=== PATIENT | female | born 1990 | race Caucasian/White ===

== ENCOUNTER 2016-11-13 08:42 | Emergency (ER) | payer BC, OTHER ==
[~2016-11-13 08:42] MED LIST: OXYC1TAB23 PO; PRENTAB9 PO
--- NOTE | 2016-11-13 09:53 | EDDOCDS ---
Physician Documentation [facility] Name: Leonie Fonseca Age: 26 yrs Sex: Female : 1990 Arrival Date: 11/13/2016 Time: 08:42 Bed Triage 1 Private MD: Lm Vergara Disposition: 11/13/16 09:26 Discharged to Home/Self Care. Impression: Acute pharyngitis. - Condition is Stable. - Discharge Instructions: Pharyngitis. - Medication Reconciliation form. - Follow up: Emergency Department; When: As needed. Follow up: Lm Vergara PA; When: Call to arrange an appointment; Reason: Wound/Symptom Recheck, Recheck today's complaints, Continuance of care. - Problem is new. - Symptoms are unchanged. Historical: - Allergies: Toradol; - Home Meds: 1. none - PMHx: Migraines; - PSHx: Brain Surgery; ; - Social history: Smoking status: Patient states was never smoker of tobacco. No barriers to communication noted, The patient speaks fluent Surinamese, Speaks appropriately for age. - Family history: Not pertinent. - : The pt / caregiver states he / she is not on anticoagulants. Home medication list is obtained from the patient. - Exposure Risk Screening:: None identified. 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 9 in. (175.26 cm) (R); Pain 3/10; 08:54 Body Mass Index 21.86 (67.13 kg, 175.26 cm) mlb1 MDM: 09:16 Strep Screen, Nursing ordered. cc10 09:34 [facility] [place] was [place] into [employer] and attached to record. jp5 09:34 Financial registration complete. jp5 09:35 GATS (NEGATIVE STREP SCREEN) Ordered. EDMS Signatures: Dispatcher [employer] EDMS Braulio Berg RN RN mlb1 Tuan Walton PA-C PA-C cc10 John Lopez jp5 The chart was reviewed and I authenticate all verbal orders and agree with the evaluation and treatment provided.Attachments: 09:34 [facility] Payment Agreement jp5 MTDD
--- NOTE | 2016-11-13 09:53 | EDDOCDS ---
Nurse's Notes [facility] Name: Leonie Fonseca Age: 26 yrs Sex: Female : 1990 Arrival Date: 11/13/2016 Time: 08:42 Bed Triage 1 Private MD: Lm Vergara Diagnosis: Acute pharyngitis Presentation: 11/13 08:52 Presenting complaint: Patient states: Sore throat for the past two days. Risk factors: mlb1 Stridor is not present. Drooling is not present. Shortness of breath is not present. Cellulitis is not present. Adult Sepsis Screening: The patient does not have new or worsening altered mentation. Patient's respiratory rate is less than 22. Systolic blood pressure is greater than 100. Patient has a qSOFA score of 0- Negative Sepsis Screen. Suicide/Homicide risk assessment- the patient denies having any suicidal and/or homicidal ideations and does not present with any other emotional, behavioral or mental health complaints. Status: Patient is not a technical service representative or dependent. Transition of care: patient was not received from another setting of care. 08:52 Acuity: KRUPA Level 4 mlb1 08:52 Method Of Arrival: Walkin/Carried/Asstd mlb1 Triage Assessment: 08:54 General: Appears in no apparent distress, comfortable, Behavior is appropriate for age, mlb1 cooperative. Pain: Location: left aspect of posterior pharynx and right aspect of posterior pharynx Pain currently is 3 out of 10 on a pain scale. Pt Declines HIV testing. 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 none - PMHx: Migraines; - PSHx: Brain Surgery; ; - Social history: Smoking status: Patient states was never smoker of tobacco. No barriers to communication noted, The patient speaks fluent Malay, Speaks appropriately for age. - Family history: Not pertinent. - : The pt / caregiver states he / she is not on anticoagulants. Home medication list is obtained from the patient. - Exposure Risk Screening:: None identified. Screenin:34 Screening information is obtained from the patient. Fall risk: No risks identified. mlb1 Assistance ADL's: requires no assistance with activities of daily living. Abuse/DV Screen: The patient / caregiver reports he/she is: not in a situation that causes fear, pain or injury. Nutritional screening: No deficits noted. Advance Directives: Currently, there is no health care proxy. home support is adequate. Assessment: 09:34 General: Appears in no apparent distress, Behavior is appropriate for age, cooperative. mlb1 Pain: Location: right aspect of posterior pharynx and left aspect of posterior pharynx Pain currently is 4 out of 10 on a pain scale. EENT: Throat is reddened. Respiratory: Airway. Respiratory: Airway is patent Respiratory effort is even, unlabored. Derm: No deficits noted. 09:51 General: Appears in no apparent distress, comfortable, Behavior is appropriate for age, mlb1 cooperative. Pain: Location: right aspect of posterior pharynx and left aspect of posterior pharynx Pain currently is 4 out of 10 on a pain scale. Vital Signs: 08:54 BP 122 / 77; Pulse 100; Resp 16; Temp 97.5(TE); Pulse Ox 98% on R/A; Weight 67.13 kg mlb1 (R); Height 5 ft. 9 in. (175.26 cm) (R); Pain 3/10; 08:54 Body Mass Index 21.86 (67.13 kg, 175.26 cm) mlb1 Vitals: 08:54 Log In Time: November 13, 2016 at 08:41. mlb1 09:34 Strep Screen is obtained and tested: Negative, [facility] ED Course: 08:43 Patient visited by Jose Hinds. mm15 08:43 Patient moved to Waiting mm15 08:44 Lm Vergara PA is Private Physician. mm15 08:52 Patient visited by Braulio Berg, SHARRON. mlb1 08:53 Triage Initiated mlb1 08:55 Patient visited by Braulio Berg, SHARRON. mlb1 08:55 Patient moved to Triage 1 mlb1 09:13 Tuan Walton PA-C [facility]. cc10 09:13 Jeni Raygoza MD is Attending Physician. cc10 09:13 Patient visited by Tuan Walton PA-C. cc10 09:13 Patient visited by Tuan Walton PA-C. cc10 09:26 Lm Vergara PA is Referral Physician. cc10 09:34 [facility] Payment Agreement was scanned into [employer] and attached to record. jp5 09:35 The patient / caregiver is instructed regarding the plan of care and ED course. mlb1 09:35 No IV's were initiated during this patient's visit. No procedures done that require mlb1 assistance. 09:51 GATS (NEGATIVE STREP SCREEN) Sent. mlb1 Order Results: There are currently no results for this order. Outcome: 09:26 Discharge ordered by Provider. cc10 09:51 Discharge Assessment: Patient awake, alert and oriented x 3. No cognitive and/or mlb1 functional deficits noted. Patient verbalized understanding of disposition instructions. patient administered narcotics - no. The following High Risk Discharge criteria are identified: None. Discharged to home ambulatory. Condition: good. Discharge instructions given to patient, Instructed on discharge instructions, follow up and referral plans. Demonstrated understanding of instructions, Pt was receptive of discharge instructions/ teaching. No special radiology studies were completed. Property sent home with patient. 09:52 Patient left the ED. mlb1 Signatures: Braulio Berg RN RN mlb1 Jose Hinds mm15 Tuan Walton PA-C PA-C cc10 John Lopez jp5 THOM
--- NOTE | 2016-11-15 10:53 | EDDOCDS ---
Physician Documentation [facility] Name: Leonie Fonseca Age: 26 yrs Sex: Female : 1990 Arrival Date: 11/13/2016 Time: 08:42 Bed Triage 1 Private MD: Lm Vergara Disposition: 11/13/16 09:26 Discharged to Home/Self Care. Impression: Acute pharyngitis. - Condition is Stable. - Discharge Instructions: Pharyngitis. - Medication Reconciliation form. - Follow up: Emergency Department; When: As needed. Follow up: Lm Vergara PA; When: Call to arrange an appointment; Reason: Wound/Symptom Recheck, Recheck today's complaints, Continuance of care. - Problem is new. - Symptoms are unchanged. Historical: - Allergies: Toradol; - Home Meds: 1. none - PMHx: Migraines; - PSHx: Brain Surgery; ; - Social history: Smoking status: Patient states was never smoker of tobacco. No barriers to communication noted, The patient speaks fluent South Korean, Speaks appropriately for age. - Family history: Not pertinent. - : The pt / caregiver states he / she is not on anticoagulants. Home medication list is obtained from the patient. - Exposure Risk Screening:: None identified. 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 9 in. (175.26 cm) (R); Pain 3/10; 08:54 Body Mass Index 21.86 (67.13 kg, 175.26 cm) mlb1 MDM: 09:16 Strep Screen, Nursing ordered. cc10 09:34 [facility] Payment Agreement was scanned into [employer] and attached to record. jp5 09:34 Financial registration complete. jp5 09:35 GATS (NEGATIVE STREP SCREEN) Ordered. EDMS 11:27 T-Sheet-- Draft Copy was scanned into [employer] and attached to record. [facility] Signatures: Dispatcher [employer] EDIA Braulio Berg RN RN mlb1 ConiskiTuan PA-C PA-C cc10 John Lopez jp5 Jeni High The chart was reviewed and I authenticate all verbal orders and agree with the evaluation and treatment provided.Attachments: 09:34 [facility] Payment Agreement jp5 11:27 T-Sheet-- Draft Copy [facility] Chart Complete MTDD
--- NOTE | 2016-11-15 10:53 | EDDOCDS ---
Physician Documentation [facility] Name: Leonie Fonseca Age: 26 yrs Sex: Female : 1990 Arrival Date: 11/13/2016 Time: 08:42 Bed Triage 1 Private MD: Lm Vergara Disposition: 11/13/16 09:26 Discharged to Home/Self Care. Impression: Acute pharyngitis. - Condition is Stable. - Discharge Instructions: Pharyngitis. - Medication Reconciliation form. - Follow up: Emergency Department; When: As needed. Follow up: Lm Vergara PA; When: Call to arrange an appointment; Reason: Wound/Symptom Recheck, Recheck today's complaints, Continuance of care. - Problem is new. - Symptoms are unchanged. Historical: - Allergies: Toradol; - Home Meds: 1. none - PMHx: Migraines; - PSHx: Brain Surgery; ; - Social history: Smoking status: Patient states was never smoker of tobacco. No barriers to communication noted, The patient speaks fluent Congolese, Speaks appropriately for age. - Family history: Not pertinent. - : The pt / caregiver states he / she is not on anticoagulants. Home medication list is obtained from the patient. - Exposure Risk Screening:: None identified. 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 9 in. (175.26 cm) (R); Pain 3/10; 08:54 Body Mass Index 21.86 (67.13 kg, 175.26 cm) mlb1 MDM: 09:16 Strep Screen, Nursing ordered. cc10 09:34 [facility] Payment Agreement was scanned into [employer] and attached to record. jp5 09:34 Financial registration complete. jp5 09:35 GATS (NEGATIVE STREP SCREEN) Ordered. EDMS 11:27 T-Sheet-- Draft Copy was scanned into [employer] and attached to record. [facility] Signatures: Dispatcher [employer] EDSC Braulio Berg RN RN mlb1 ConiskiTuan PA-C PA-C cc10 John Lopez jp5 Jeni High The chart was reviewed and I authenticate all verbal orders and agree with the evaluation and treatment provided.Attachments: 09:34 [facility] Payment Agreement jp5 11:27 T-Sheet-- Draft Copy [facility] Chart Complete MTDD
--- NOTE | 2016-11-15 10:53 | EDDOCDS ---
Nurse's Notes [facility] Name: Leonie Fonseca Age: 26 yrs Sex: Female : 1990 Arrival Date: 11/13/2016 Time: 08:42 Bed Triage 1 Private MD: Lm Vergara Diagnosis: Acute pharyngitis Presentation: 11/13 08:52 Presenting complaint: Patient states: Sore throat for the past two days. Risk factors: mlb1 Stridor is not present. Drooling is not present. Shortness of breath is not present. Cellulitis is not present. Adult Sepsis Screening: The patient does not have new or worsening altered mentation. Patient's respiratory rate is less than 22. Systolic blood pressure is greater than 100. Patient has a qSOFA score of 0- Negative Sepsis Screen. Suicide/Homicide risk assessment- the patient denies having any suicidal and/or homicidal ideations and does not present with any other emotional, behavioral or mental health complaints. 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 Transition of care: patient was not received from another setting of care. 08:52 Acuity: KRUPA Level 4 mlb1 08:52 Method Of Arrival: Walkin/Carried/Asstd mlb1 Triage Assessment: 08:54 General: Appears in no apparent distress, comfortable, Behavior is appropriate for age, mlb1 cooperative. Pain: Location: left aspect of posterior pharynx and right aspect of posterior pharynx Pain currently is 3 out of 10 on a pain scale. Pt Declines HIV testing. 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 none - PMHx: Migraines; - PSHx: Brain Surgery; ; - Social history: Smoking status: Patient states was never smoker of tobacco. No barriers to communication noted, The patient speaks fluent Maori, Speaks appropriately for age. - Family history: Not pertinent. - : The pt / caregiver states he / she is not on anticoagulants. Home medication list is obtained from the patient. - Exposure Risk Screening:: None identified. Screenin:34 Screening information is obtained from the patient. Fall risk: No risks identified. mlb1 Assistance ADL's: requires no assistance with activities of daily living. Abuse/DV Screen: The patient / caregiver reports he/she is: not in a situation that causes fear, pain or injury. Nutritional screening: No deficits noted. Advance Directives: Currently, there is no health care proxy. home support is adequate. Assessment: 09:34 General: Appears in no apparent distress, Behavior is appropriate for age, cooperative. mlb1 Pain: Location: right aspect of posterior pharynx and left aspect of posterior pharynx Pain currently is 4 out of 10 on a pain scale. EENT: Throat is reddened. Respiratory: Airway. Respiratory: Airway is patent Respiratory effort is even, unlabored. Derm: No deficits noted. 09:51 General: Appears in no apparent distress, comfortable, Behavior is appropriate for age, mlb1 cooperative. Pain: Location: right aspect of posterior pharynx and left aspect of posterior pharynx Pain currently is 4 out of 10 on a pain scale. Vital Signs: 08:54 BP 122 / 77; Pulse 100; Resp 16; Temp 97.5(TE); Pulse Ox 98% on R/A; Weight 67.13 kg mlb1 (R); Height 5 ft. 9 in. (175.26 cm) (R); Pain 3/10; 08:54 Body Mass Index 21.86 (67.13 kg, 175.26 cm) mlb1 Vitals: 08:54 Log In Time: November 13, 2016 at 08:41. mlb1 09:34 Strep Screen is obtained and tested: Negative, [facility]. ED Course: 08:43 Patient visited by Jose Hinds. mm15 08:43 Patient moved to Waiting mm15 08:44 Lm Vergara PA is Private Physician. mm15 08:52 Patient visited by Braulio Berg, SHARRON. mlb1 08:53 Triage Initiated mlb1 08:55 Patient visited by Braulio Berg, SHARRON. mlb1 08:55 Patient moved to Triage 1 mlb1 09:13 Tuan Walton PA-C [facility]. cc10 09:13 Jeni Raygoza MD is Attending Physician. cc10 09:13 Patient visited by Tuan Walton PA-C. cc10 09:13 Patient visited by Tuan Walton PA-C. cc10 09:26 Lm Vergara PA is Referral Physician. cc10 09:34 [facility] Payment Agreement was scanned into [employer] and attached to record. jp5 09:35 The patient / caregiver is instructed regarding the plan of care and ED course. mlb1 09:35 No IV's were initiated during this patient's visit. No procedures done that require mlb1 assistance. 09:51 GATS (NEGATIVE STREP SCREEN) Sent. mlb1 11:27 T-Sheet-- Draft Copy was scanned into [employer] and attached to record. [facility] Order Results: Lab Order: GATS (NEGATIVE STREP SCREEN); SPEC'M 11/13/16 09:48 Test: GATS CULTURE (NEG STREP SCR); Value: GATS RESULT NEGATIVE FOR STREP PYOGENES (GROUP A); Status: F Outcome: 09:26 Discharge ordered by Provider. cc10 09:51 Discharge Assessment: Patient awake, alert and oriented x 3. No cognitive and/or mlb1 functional deficits noted. Patient verbalized understanding of disposition instructions. patient administered narcotics - no. The following High Risk Discharge criteria are identified: None. Discharged to home ambulatory. Condition: good. Discharge instructions given to patient, Instructed on discharge instructions, follow up and referral plans. Demonstrated understanding of instructions, Pt was receptive of discharge instructions/ teaching. No special radiology studies were completed. Property sent home with patient. 09:52 Patient left the ED. mlb1 Signatures: Braulio Berg RN RN mlb1 Jose Hinds mm15 Tuan Walton PA-C PA-C cc10 John Lopez jp5 Jeni High Chart Complete MTDD
== END 2016-11-13 09:51 | disposition home or self-care (01) ==
LOC: M ED 08:42
DX: J02.9 Acute pharyngitis, unspecified (principal); Z88.6 Allergy status to analgesic agent

== ENCOUNTER 2017-09-24 19:15 | Emergency (ER) | payer BC, OTHER ==
[~2017-09-24] VITALS: Ht 175.3 cm; Wt 63.6 kg
[2017-09-24] MEDS ORDERED: CETI10TA PO (19:21)
[2017-09-24] MEDS ORDERED: MORPHINE 4 MG/ML 1ML SYRINGE IV ONE (19:45)
[2017-09-24] MEDS ORDERED: ONDANSETRON 4MG/2ML VIAL (J2405) IV ONE (19:45)
[2017-09-24] MEDS ORDERED: NS 1,000 ML IV ONE (19:45)
[2017-09-24 20:19] LABS: BASO # 0.1 10^3/uL (0.0-0.2); BASO % 1.1 % (0.0-1.0); EOS # 0.4 10^3/uL (0.0-0.50); EOS % 3.8 % (0.0-3.0); IMMATURE GRANULOCYTE % 0.2 % (0-0); LYMPH # 3.8 10^3/uL (1.5-6.5); LYMPH % 38.2 % (24.0-44.0); MEAN CORPUSCULAR HEMOGLOBIN 27.1 pg (27.0-33.0); MEAN CORPUSCULAR HGB CONC 32.5 g/dl (32.0-36.5); MEAN CORPUSCULAR VOLUME 83.1 fl (80.0-96.0); MONO # 0.5 10^3/uL (0.0-0.8); MONO % 4.7 % (0.0-5.0); NEUTROPHILS # 5.2 10^3/uL (1.8-7.7); PLATELET COUNT, AUTOMATED 240 10^3/uL (150-450); RED CELL DISTRIBUTION WIDTH 14.1 % (11.5-14.5)
[2017-09-24 20:37] LABS: CONTROL LINE UCG INT CTR LINE PRESENT
[2017-09-24 20:42] LABS: ALBUMIN 3.9 GM/DL (3.2-5.2); ALBUMIN/GLOBULIN RATIO 1.39 (1.00-1.93); ALKALINE PHOSPHATASE 55 U/L (45-117); ALT/SGPT 22 U/L (12-78); ANION GAP 7 MEQ/L (8-16); AST/SGOT 15 U/L (7-37); BILIRUBIN,DIRECT 0.1 MG/DL (0.0-0.2); BILIRUBIN,TOTAL 0.4 MG/DL (0.2-1.0); BLOOD UREA NITROGEN 10 MG/DL (7-18); CARBON DIOXIDE LEVEL 27 MEQ/L (21-32); CHLORIDE LEVEL 108 MEQ/L (98-107); CREATININE FOR GFR 0.83 MG/DL (0.55-1.02); GLOMERULAR FILTRATION RATE > 60.0 (>60); GLUCOSE, FASTING 87 MG/DL (70-105); POTASSIUM SERUM 3.8 MEQ/L (3.5-5.1); SODIUM LEVEL 142 MEQ/L (136-145); TOTAL PROTEIN 6.7 GM/DL (6.4-8.2)
[2017-09-24] MEDS ORDERED: ISOVUE-370 76% 100ML VIAL (Q9967) As Ordered ONE (20:51)
[2017-09-24 22:03] VITALS: BP 140/82
--- NOTE | 2017-09-24 22:40 | REPUSA ---
Clinical history: Pain. Findings: Real-time transabdominal ultrasound images of the pelvis were obtained. An anteverted uteru s is noted, measuring 8.4 x 2.7 x 5.2 cm. The uterus demonstrates normal echotexture and echogenicity . The endometrial stripe measures 4 mm and is within normal limits. The right ovary measures 5.1 x 3. 2 x 2.3 cm. The left ovary measures 2.3 x 1.5 x 2.8 cm. No adnexal masses are seen. Color Doppler mikaela w is seen within both ovaries. There is no evidence of free fluid. The urinary bladder measures 9.2 x 7.1 x 9.2 cm, and is unremarkable. Impression: Unremarkable ultrasound examination of the pelvis.
--- NOTE | 2017-09-25 11:53 | REPUSA ---
CT of the abdomen and pelvis with contrast Clinical statement: Pain. Technique: Multiple axial CT images were obtained from the base of the lungs through the floor of the pelvis utilizing 5 mm axial slices after administration of nonionic intravenous contrast. Coronal an d sagittal reconstructions were also obtained. Comparison: 07/01/2008. Findings: Chest: The visualized lung bases are clear. Abdomen: The liver, spleen, pancreas, kidneys, gallbladder, and adrenal glands are unremarkable. The aorta is within normal limits. There is no evidence of abdominal lymphadenopathy or ascites. Pelvis: The bowel is unremarkable, with no obstructive or inflammatory changes. The urinary bladder i s within normal limits. The other pelvic structures appear grossly intact. There is no evidence of pe lvic lymphadenopathy or ascites. Bones: There are no suspicious osseous abnormalities seen. Impression: Unremarkable CT examination of the abdomen and pelvis.
== END 2017-09-24 22:40 | disposition home or self-care (01) ==
LOC: M ED 19:15
DX: R10.32 Left lower quadrant pain (principal); R11.0 Nausea; Z79.899 Other long term (current) drug therapy; Z88.8 Allergy status to other drugs, medicaments and biological substances
CPT/HCPCS: 74177; 76856; 80048; 80076; 81001; 81025; 83690; 84703; 85025; 87086; 93976; 96361; 96374; 96375; 99284; J2405; Q9967

== ENCOUNTER → 2017-09-28 | Outpatient (CLI) | payer OTHER, BC ==
[~2017-09-28] MED LIST changes: +CETI10TA PO
== END ==
LOC: M WUC 14:36
PROVIDERS: ATTEND Nurse Practitioner Family
DX: R10.2 Pelvic and perineal pain (principal)

== ENCOUNTER → 2017-10-23 | Outpatient (REF) | payer OTHER | LOC: M LAB REF 12:26 | PROVIDERS: ATTEND Physician Assistant | DX: J02.9 Acute pharyngitis, unspecified (principal) ==

== ENCOUNTER → 2018-02-02 | Outpatient (REF) | payer OTHER | LOC: M LAB REF 11:54 | DX: R30.0 Dysuria (principal) ==

== ENCOUNTER → 2018-05-03 | Outpatient (CLI) | payer OTHER ==
[2018-05-03 16:56] LABS: ALBUMIN 3.5 GM/DL (3.2-5.2); ALBUMIN/GLOBULIN RATIO 1.17 (1.00-1.93); ALKALINE PHOSPHATASE 60 U/L (45-117); ALT/SGPT 19 U/L (12-78); AMYLASE 75 U/L (25-115); AST/SGOT 15 U/L (7-37); BILIRUBIN,DIRECT < 0.1 MG/DL (0.0-0.2); BILIRUBIN,TOTAL 0.3 MG/DL (0.2-1.0); LIPASE 163 U/L (73-393); TOTAL PROTEIN 6.5 GM/DL (6.4-8.2)
== END ==
LOC: M WUC 14:02
DX: Z34.81 Encounter for supervision of other normal pregnancy, first trimester (principal)
CPT/HCPCS: 82150

== ENCOUNTER → 2018-06-15 | Outpatient (CLI) | payer BC, OTHER | LOC: M RAD 13:40 | DX: Z34.82 Encounter for supervision of other normal pregnancy, second trimester (principal); Z36.89 Encounter for other specified antenatal screening; Z3A.18 18 weeks gestation of pregnancy | CPT/HCPCS: 76811 ==

== ENCOUNTER → 2018-07-28 | Outpatient (REF) | payer OTHER | LOC: M LAB REF 10:45 | DX: J06.9 Acute upper respiratory infection, unspecified (principal) ==

== ENCOUNTER → 2018-07-31 | Outpatient (CLI) | payer BC, OTHER | LOC: M RAD 13:59 | DX: O32.1XX0 Maternal care for breech presentation, not applicable or unspecified (principal); Z3A.24 24 weeks gestation of pregnancy | CPT/HCPCS: 76816 ==

== ENCOUNTER → 2018-08-14 | Outpatient (CLI) | payer OTHER, BC ==
[2018-08-14 17:33] LABS: HEMATOCRIT 37.9 % (36.0-47.0); MEAN CORPUSCULAR HEMOGLOBIN 27.8 pg (27.0-33.0); MEAN CORPUSCULAR HGB CONC 31.7 g/dl (32.0-36.5); MEAN CORPUSCULAR VOLUME 87.9 fl (80.0-96.0); PLATELET COUNT, AUTOMATED 201 10^3/uL (150-450); RED BLOOD COUNT 4.31 10^6/uL (4.00-5.40); RED CELL DISTRIBUTION WIDTH 13.1 % (11.5-14.5); WHITE BLOOD COUNT 12.7 10^3/uL (4.0-10.0)
[2018-08-14 18:24] LABS: GLUCOSE CHALLENGE TEST 1 HOUR 157 MG/DL (LESS THAN 140)
== END ==
LOC: M WUC 14:34
DX: Z34.82 Encounter for supervision of other normal pregnancy, second trimester (principal)
CPT/HCPCS: 82950

== ENCOUNTER → 2018-08-21 | Outpatient (CLI) | payer BC, OTHER ==
[2018-08-21 09:35] LABS: GLUCOSE, FASTING 79 MG/DL (LESS THAN 95)
[2018-08-21 09:58] LABS: 1 HR GLUCOSE 94 MG/DL (LESS THAN 180)
[2018-08-21 10:58] LABS: 2 HR GLUCOSE 82 MG/DL (LESS THAN 155)
[2018-08-21 12:07] LABS: 3 HR GLUCOSE 52 MG/DL (LESS THAN 140)
== END ==
LOC: M LAB 08:07
DX: Z34.82 Encounter for supervision of other normal pregnancy, second trimester (principal); Z3A.00 Weeks of gestation of pregnancy not specified
CPT/HCPCS: 82951

== ENCOUNTER → 2018-10-18 | Outpatient (REF) | payer OTHER | LOC: M LAB REF 17:03 | DX: Z34.82 Encounter for supervision of other normal pregnancy, second trimester (principal); Z36.85 Encounter for antenatal screening for Streptococcus B | CPT/HCPCS: 87081 ==

== ENCOUNTER 2018-10-25 19:21 | Inpatient (IN) | payer BC, OTHER ==
[2018-10-25] MEDS: LACTATED RINGER'S 1000 ML IV (20:12)
[2018-10-25] MEDS ORDERED: ONDANSETRON 4MG/2ML VIAL (J2405) IV ×3 (20:30→23:00)
[2018-10-25] MEDS ORDERED: NALBUPHINE HCL 10 MG/ML AMP (J2300) IV (20:30)
[2018-10-25] MEDS ORDERED: NALOXONE INJ 0.4 MG/1 ML VIAL (J2310) IV ×2 (20:30)
[2018-10-25] MEDS ORDERED: ONDANSETRON 4MG/2ML VIAL (J2405) As Ordered ×2 (20:42→22:44)
[2018-10-25] MEDS ORDERED: dexameTHASONE 4 MG/ML 1ML VIAL (J1100) As Ordered (20:42)
[2018-10-25] MEDS ORDERED: OXYTOCIN INJ 10 UNITS/ML VIAL (J2590) As Ordered (20:42)
[2018-10-25] MEDS ORDERED: MORPHINE PRES-FREE INJ 10 MG/10 ML VIAL (J2274) As Ordered (20:43)
[2018-10-25] MEDS ORDERED: fentaNYL 100 MCG/2 ML INJECTION (J3010) As Ordered (20:43)
[2018-10-25 20:45] LABS: HEMATOCRIT 37.6 % (36.0-47.0); HEMOGLOBIN 11.6 g/dl (12.0-15.5); MEAN CORPUSCULAR HEMOGLOBIN 24.8 pg (27.0-33.0); MEAN CORPUSCULAR HGB CONC 30.9 g/dl (32.0-36.5); MEAN CORPUSCULAR VOLUME 80.3 fl (80.0-96.0); PLATELET COUNT, AUTOMATED 194 10^3/uL (150-450); RED BLOOD COUNT 4.68 10^6/uL (4.00-5.40); RED CELL DISTRIBUTION WIDTH 14.8 % (11.5-14.5); WHITE BLOOD COUNT 11.8 10^3/uL (4.0-10.0)
[2018-10-25] MEDS: BICITRA 30ML SOLN UDC PO (21:01)
[2018-10-25] MEDS: AZITHROMYCIN INJ 500 MG, VIAL MATE ADAPTER 1 EACH in D5W 250 ML IV (21:04)
[2018-10-25] MEDS ORDERED: ePHEDrine SULFATE 25 MG/5 ML(5MG/ML) SYRINGE As Ordered (22:03)
[2018-10-25] MEDS ORDERED: PHENYLephrine HCL 500 MCG/5 ML (100MCG/ML) SYRINGE (J2370) As Ordered (22:03)
[2018-10-25] MEDS: OXYTOCIN DRIP 30 UNITS in APPROPRIATE DILUENT 1 EA IV (22:34)
[2018-10-25] MEDS ORDERED: PERCOCET 5MG/325MG TAB PO ×2 (22:45)
[2018-10-25] MEDS ORDERED: PROMETHAZINE 25 MG TAB PO (22:45)
[2018-10-25] MEDS ORDERED: OXYTOCIN 30 UNITS IN 0.9% NaCl 500ML IV BAG (J2590) As Ordered (22:49)
[2018-10-25] MEDS ORDERED: fentaNYL 100 MCG/2 ML INJECTION (J3010) IV (23:00)
[2018-10-26] MEDS: LR 1,000 ML IV ×2 (03:23→06:34)
[2018-10-26] MEDS: METOCLOPRAMIDE INJ 10MG/2ML VIAL (J2765) IV (06:31)
[2018-10-26 06:55] LABS: HEMATOCRIT 37.2 % (36.0-47.0); HEMOGLOBIN 11.8 g/dl (12.0-15.5); MEAN CORPUSCULAR HEMOGLOBIN 25.1 pg (27.0-33.0); MEAN CORPUSCULAR HGB CONC 31.7 g/dl (32.0-36.5); PLATELET COUNT, AUTOMATED 186 10^3/uL (150-450); RED BLOOD COUNT 4.71 10^6/uL (4.00-5.40); RED CELL DISTRIBUTION WIDTH 14.7 % (11.5-14.5); WHITE BLOOD COUNT 20.5 10^3/uL (4.0-10.0)
[2018-10-26] MEDS: IBUPROFEN 800 MG TAB PO ×4 (07:13→23:17)
[2018-10-26] MEDS: RHOGAM 300 MCG (1500 IU) INJ (J2790) IM (07:15)
[2018-10-26] MEDS: MEASLES,MUMPS,RUBELLA VACCINE INJ (MMR-II) (90707) SC (07:15)
[2018-10-26] MEDS: DOCUSATE SODIUM 100 MG CAP PO ×2 (08:07→19:59)
[2018-10-26] MEDS: PRENATAL VITAMINS CHEWABLE TABLET PO (08:07)
[2018-10-26] MEDS ORDERED: guaiFENesin ER 600 MG TAB PO (09:00)
[2018-10-27] MEDS: IBUPROFEN 800 MG TAB PO (08:16)
[2018-10-27] MEDS: DOCUSATE SODIUM 100 MG CAP PO (08:16)
[2018-10-27] MEDS: PRENATAL VITAMINS CHEWABLE TABLET PO (08:16)
== END 2018-10-27 14:26 | disposition home or self-care (01) | DRG 540 ==
LOC: M LDO 19:21 → M OBS 10-26 00:20 → M LDI 19:55
PROVIDERS: Obstetrics & Gynecology
PROC: 10D00Z1 Extraction of Products of Conception, Low, Open Approach (ICD-10-PCS; principal; 2018-10-25 21:04)
DX: O34.211 Maternal care for low transverse scar from previous cesarean delivery (principal); Z3A.37 37 weeks gestation of pregnancy; O75.82 Onset (spontaneous) of labor after 37 completed weeks of gestation but before 39 completed weeks gestation, with delivery by (planned) cesarean section; Z37.0 Single live birth

== ENCOUNTER → 2019-09-12 | Outpatient (REF) | payer BC ==
[~2019-09-12] MED LIST changes: +IBUP-1114 PO; +MAGN1TAB39 PO
== END ==
LOC: M LAB REF 16:06
PROVIDERS: ATTEND Physician Assistant
DX: R19.7 Diarrhea, unspecified (principal)

== ENCOUNTER 2019-09-13 22:59 | Emergency (ER) | payer BC, OTHER ==
[~2019-09-13] VITALS: Ht 175.3 cm; Wt 63.6 kg
[2019-09-13 23:00] VITALS: BP 123/74
[2019-09-13] MEDS ORDERED: NS 1,000 ML IV ONE (23:45)
[2019-09-14] MEDS ORDERED: MORPHINE 4 MG/ML 1ML VIAL/SYRINGE (J2270) IV ONE
[2019-09-14] MEDS ORDERED: NS 1,000 ML IV ONE
[2019-09-14 00:21] LABS: BASO # 0.1 10^3/uL (0.0-0.2); BASO % 1.3 % (0.0-1.0); EOS # 0.4 10^3/uL (0.0-0.5); EOS % 5.5 % (0.0-3.0); HEMATOCRIT 42.8 % (36.0-47.0); HEMOGLOBIN 14.5 g/dl (12.0-15.5); LYMPH # 3.1 10^3/uL (1.5-5.0); LYMPH % 45.7 % (24.0-44.0); MEAN CORPUSCULAR HEMOGLOBIN 30.1 pg (27.0-33.0); MEAN CORPUSCULAR HGB CONC 33.9 g/dl (32.0-36.5); MONO # 0.3 10^3/uL (0.0-0.8); MONO % 4.9 % (0.0-5.0); NEUTROPHILS # 2.8 10^3/uL (1.5-8.5); PLATELET COUNT, AUTOMATED 205 10^3/uL (150-450); RED BLOOD COUNT 4.81 10^6/uL (4.00-5.40); WHITE BLOOD COUNT 6.7 10^3/uL (4.0-10.0)
[2019-09-14 00:42] LABS: ALBUMIN 3.7 GM/DL (3.2-5.2); ALT/SGPT 23 U/L (12-78); BILIRUBIN,DIRECT 0.1 MG/DL (0.0-0.2); BILIRUBIN,TOTAL 0.3 MG/DL (0.2-1.0); BLOOD UREA NITROGEN 14 MG/DL (7-18); CALCIUM LEVEL 8.6 MG/DL (8.5-10.1); CARBON DIOXIDE LEVEL 29 MEQ/L (21-32); CHLORIDE LEVEL 106 MEQ/L (98-107); CREATININE FOR GFR 0.93 MG/DL (0.55-1.30); GLOMERULAR FILTRATION RATE > 60.0 (>60); GLUCOSE, FASTING 83 MG/DL (70-100); LIPASE 148 U/L (73-393); POTASSIUM SERUM 3.7 MEQ/L (3.5-5.1); SODIUM LEVEL 141 MEQ/L (136-145); TOTAL PROTEIN 6.6 GM/DL (6.4-8.2)
[2019-09-14] MEDS ORDERED: ISOVUE-370 76% 100ML VIAL (Q9967) As Ordered ONE (00:58)
--- NOTE | 2019-09-14 01:46 | REPVR ---
PROCEDURE INFORMATION: Exam: CT Abdomen And Pelvis With Contrast Exam date and time: 09/14/2019 1:14 AM Clinical history: 29 years old, female; Abdominal pain; Generalized; Additional info: R pain TECHNIQUE: Imaging protocol: Computed tomography of the abdomen and pelvis with intravenous contrast. Radiation optimization: All CT scans at this facility use at least one of these dose optimization techniques: automated exposure control; mA and/or kV adjustment per patient size (includes targeted exams where dose is matched to clinical indication); or iterative reconstruction. Contrast material: ISOVUE 370; Contrast volume: 100 ml; Contrast route: IV; COMPARISON: CT ABD/PEL W/IV CONTRAST ONLY 09/24/2017 8:44 PM FINDINGS: Lungs: No suspicious mass or airspace process in the visualized lung bases. Liver: Liver appears normal with no focal abnormality. Gallbladder and bile ducts: Gallbladder is present and shows no evidence of gallstone. Pancreas: Pancreas appears normal. No focal mass or peripancreatic inflammation. Spleen: Spleen appears homogeneous without focal mass. Adrenals: Adrenal glands are normal in appearance. Kidneys and ureters: Kidneys appear normal, with no stone, solid mass or hydronephrosis. Stomach and bowel: No evidence of small bowel obstruction. Large volume of stool is seen throughout the colon. No evidence of acute diverticulitis. Appendix: Appendix is not seen. No RLQ inflammation to suggest appendicitis. Intraperitoneal space: No pneumoperitoneum. No abnormal pelvic mass. Vasculature: No aortic aneurysm. Main portal and splenic veins enhance normally. Lymph nodes: No enlarged lymph nodes. Bladder: Urinary bladder appears normal. Bones/joints: Bony structures show no acute fracture or destructive process. IMPRESSION: 1. No acute surgical or inflammatory intra-abdominal or pelvic process. 2. Large volume of diffuse colonic stool suggesting possible constipation Electronically signed by: Alfredo Laboy On 09/14/2019 01:45:58 AM
== END 2019-09-14 02:29 | disposition home or self-care (01) ==
LOC: M ED 22:59
DX: K59.00 Constipation, unspecified (principal)
CPT/HCPCS: 36415; 74177; 80048; 80076; 81001; 83690; 84702; 85025; 96360; 99284; Q9967

== ENCOUNTER → 2020-02-10 | Outpatient (CLI) | payer BC, OTHER ==
--- NOTE | 2020-02-10 12:45 | REP ---
DIGITAL DIAGNOSTIC BILATERAL MAMMOGRAPHY WITH CAD, 3-D TOMOGRAPHY, AND FOCUSED UPPER OUTER QUADRANT RIGHT BREAST SONOGRAPHY: HISTORY: Palpable abnormality in the upper outer quadrant of the right breast reported to the patient by the referring provider. The patient cannot feel a lump. No comparison imaging. MAMMOGRAPHIC FINDINGS: Breast parenchyma is heterogeneously dense in a pattern which may inhibit the sensitivity of mammography. Fibroglandular elements are symmetric. No dominant density, architectural distortion, mass, or microcalcification grouping is seen. No worrisome skin changes appreciated. The mammogram does not show any suspicious findings. SONOGRAPHIC FINDINGS: Focused right upper outer quadrant breast sonography is performed. Mildly heterogeneous fibroglandular background echotexture is seen. No sonographically suspicious finding. IMPRESSION: BIRADS 1: BI-RADS/ACR category 1 mammogram. Negative Mammogram. BIRADS category 1 negative findings. Clinical followup is advised. This mammogram was interpreted with the aid of an FDA-approved computer-aided detection system. The patient states she had a clinical breast exam in January 2020. The patient letter being requested is m2 dense. This patient's estimated Tyrer-Cuzick lifetime risk assessment for breast cancer is 12.7 %.
== END ==
LOC: M WHC 10:25
PROVIDERS: ATTEND Advanced Practice Midwife
DX: N64.4 Mastodynia (principal)
CPT/HCPCS: 76642; 77066; G0279

== ENCOUNTER → 2020-07-14 | Outpatient (REF) | payer BC | LOC: M WHC 14:00 | PROVIDERS: ATTEND Obstetrics & Gynecology | DX: Z12.4 Encounter for screening for malignant neoplasm of cervix (principal) | CPT/HCPCS: 87624; G0123 ==

== ENCOUNTER → 2021-02-05 | Outpatient (CLI) | payer BC ==
[2021-02-05 09:52] LABS: HEMATOCRIT 43.5 % (36.0-47.0); HEMOGLOBIN 14.4 g/dl (12.0-15.5); MEAN CORPUSCULAR HEMOGLOBIN 30.2 pg (27.0-33.0); MEAN CORPUSCULAR HGB CONC 33.1 g/dl (32.0-36.5); MEAN CORPUSCULAR VOLUME 91.2 fl (80.0-96.0); PLATELET COUNT, AUTOMATED 216 10^3/uL (150-450); RED BLOOD COUNT 4.77 10^6/uL (4.00-5.40); WHITE BLOOD COUNT 4.9 10^3/uL (4.0-10.0)
[2021-02-05 10:40] LABS: HCG, SERUM QUALITATIVE NEGATIVE (NEGATIVE)
[2021-02-05 10:46] LABS: ALT/SGPT 24 U/L (12-78); BILIRUBIN,TOTAL 0.5 MG/DL (0.2-1.0); BLOOD UREA NITROGEN 15 MG/DL (7-18); CALCIUM LEVEL 8.9 MG/DL (8.5-10.1); CARBON DIOXIDE LEVEL 31 MEQ/L (21-32); CHLORIDE LEVEL 107 MEQ/L (98-107); CREATININE FOR GFR 0.78 MG/DL (0.55-1.30); GLOMERULAR FILTRATION RATE > 60.0 (>60); GLUCOSE, FASTING 99 MG/DL (70-100); SODIUM LEVEL 142 MEQ/L (136-145); TOTAL PROTEIN 6.5 GM/DL (6.4-8.2)
== END ==
LOC: M WUC 08:36
PROVIDERS: ATTEND Family Medicine
DX: R53.83 Other fatigue (principal); N92.6 Irregular menstruation, unspecified

== ENCOUNTER → 2021-08-27 | Outpatient (REF) | payer OTHER ==
[2021-08-27 15:42] LABS: APPEARANCE, URINE HAZY (CLEAR); BACTERIA, URINE AUTO 1+ (NEGATIVE); BILIRUBIN, URINE AUTO NEGATIVE (NEGATIVE); BLOOD, URINE BLOOD 3+ (NEGATIVE); COLOR, URINE YELLOW (YELLOW); GLUCOSE, URINE (UA) AUTO NEGATIVE (NEGATIVE); KETONE, URINE AUTO NEGATIVE (NEGATIVE); LEUKOCYTE ESTERASE, URINE AUTO 3+ (NEGATIVE); NITRITE, URINE AUTO NEGATIVE (NEGATIVE); PROTEIN, URINE AUTO NEGATIVE (NEGATIVE); RBC, URINE AUTO 11 /HPF (0-3); SPECIFIC GRAVITY URINE AUTO 1.003 (1.002-1.035); SQUAMOUS EPITHELIAL CELL UR AU 0 /HPF (0-6); UROBILINOGEN, URINE AUTO 0.2 mg/dL (0.0-2.0); WBC, URINE AUTO 60 /HPF (0-3)
== END ==
LOC: M SFHCWAGY 12:47
PROVIDERS: ATTEND Advanced Practice Midwife
DX: R35.0 Frequency of micturition (principal)

== ENCOUNTER → 2021-09-01 | Outpatient (CLI) | payer OTHER ==
[2021-09-01 15:12] LABS: BASO # 0.1 10^3/uL (0.0-0.2); BASO % 0.9 % (0.0-1.0); EOS # 0.6 10^3/uL (0.0-0.5); HEMATOCRIT 46.4 % (36.0-47.0); HEMOGLOBIN 15.1 g/dl (12.0-15.5); LYMPH # 1.2 10^3/uL (1.5-5.0); LYMPH % 16.1 % (24.0-44.0); MEAN CORPUSCULAR HEMOGLOBIN 29.5 pg (27.0-33.0); MEAN CORPUSCULAR HGB CONC 32.5 g/dl (32.0-36.5); MEAN CORPUSCULAR VOLUME 90.6 fl (80.0-96.0); MONO # 0.6 10^3/uL (0.0-0.8); MONO % 7.2 % (2.0-8.0); NEUTROPHILS # 5.2 10^3/uL (1.5-8.5); NEUTROPHILS % 67.5 % (36.0-66.0); PLATELET COUNT, AUTOMATED 211 10^3/uL (150-450); RED BLOOD COUNT 5.12 10^6/uL (4.00-5.40); WHITE BLOOD COUNT 7.7 10^3/uL (4.0-10.0)
[2021-09-03 17:08] LABS: Lyme Disease IgG/IgM Antibodie <0.91 ISR (0.00-0.90); Lyme Disease IgM Ab Quantitati <0.80 index (0.00-0.79)
== END ==
LOC: M WUC 11:31
PROVIDERS: ATTEND Family Medicine
DX: M06.4 Inflammatory polyarthropathy (principal)

== ENCOUNTER → 2021-10-28 | Outpatient (CLI) | payer BC, OTHER ==
[2021-10-28 15:45] LABS: HCG, SERUM QUALITATIVE NEGATIVE (NEGATIVE)
[2021-10-28 15:48] LABS: FREE T4 0.99 NG/DL (0.76-1.46)
[2021-10-28 15:52] LABS: FOLLICLE STIMULATING HORMONE 5.6 mIU/mL; LUTEINIZING HORMONE 11.2 mIU/mL
== END ==
LOC: M PLALAB 12:27
PROVIDERS: ATTEND Advanced Practice Midwife
DX: N94.10 Unspecified dyspareunia (principal); N92.6 Irregular menstruation, unspecified; N93.0 Postcoital and contact bleeding; R10.2 Pelvic and perineal pain

== ENCOUNTER → 2021-10-28 | Outpatient (REF) | payer BC ==
[~2021-10-28] MED LIST changes: +CETI5CHW PO; +CLIN1GEL22 TOP; +MIRA3350 PO; +RA M1.74 PO; +SPIR100T3 PO
== END ==
LOC: M PLALAB 13:29
PROVIDERS: ATTEND Advanced Practice Midwife
DX: Z53.20 Procedure and treatment not carried out because of patient's decision for unspecified reasons (principal)

== ENCOUNTER → 2021-10-28 | Outpatient (REF) | payer BC ==
[2021-10-28 19:01] LABS: APPEARANCE, URINE CLEAR (CLEAR); BACTERIA, URINE AUTO NEGATIVE (NEGATIVE); BILIRUBIN, URINE AUTO NEGATIVE (NEGATIVE); BLOOD, URINE BLOOD NEGATIVE (NEGATIVE); COLOR, URINE STRAW (YELLOW); GLUCOSE, URINE (UA) AUTO NEGATIVE (NEGATIVE); KETONE, URINE AUTO NEGATIVE (NEGATIVE); LEUKOCYTE ESTERASE, URINE AUTO NEGATIVE (NEGATIVE); MUCUS, URINE SMALL (NEGATIVE); NITRITE, URINE AUTO NEGATIVE (NEGATIVE); PROTEIN, URINE AUTO NEGATIVE (NEGATIVE); RBC, URINE AUTO 0 /HPF (0-3); SPECIFIC GRAVITY URINE AUTO 1.001 (1.002-1.035); SQUAMOUS EPITHELIAL CELL UR AU 1 /HPF (0-6); UROBILINOGEN, URINE AUTO 0.2 mg/dL (0.0-2.0); WBC, URINE AUTO 0 /HPF (0-3)
== END ==
LOC: M SFHCWAGY 16:58
PROVIDERS: ATTEND Advanced Practice Midwife
DX: Z12.4 Encounter for screening for malignant neoplasm of cervix (principal); R10.2 Pelvic and perineal pain; N93.0 Postcoital and contact bleeding
CPT/HCPCS: 81001; 87086; 87624; G0123

== ENCOUNTER → 2021-11-01 | Outpatient (CLI) | payer BC, OTHER ==
--- NOTE | 2021-11-01 08:24 | REP ---
INDICATION: PELVIC PAIN/IRREGULAR BLEEDING COMPARISON: None. TECHNIQUE: Transabdominal pelvic ultrasound followed by transvaginal examination for better evaluation of the endometrium and adnexa with color Doppler evaluation of the ovaries. FINDINGS: Bladder is unremarkable and measures 7.1 x 3.2 x 4.7 cm. Normal anteverted uterus measures 9.1 x 5.1 x 4.6 cm. The endometrial complex measures 7 mm thickness. Ovaries are normal in vascularity without torsion. Right ovary measures 3.7 x 1.4 x 1.8 cm; R I = 0.44. Left ovary measures 2.2 x 2.4 x 3.5 cm and includes 1.8 cm physiologic hemorrhagic cyst; R I = 0.45. No pelvic fluid or adnexal mass lesion. IMPRESSION: Normal pelvic ultrasound. <Electronically signed by Jose Hoffman > 11/01/21 0844
== END ==
LOC: M WHC 07:04
PROVIDERS: ATTEND Advanced Practice Midwife
DX: N94.10 Unspecified dyspareunia (principal); N92.6 Irregular menstruation, unspecified; N93.0 Postcoital and contact bleeding

== ENCOUNTER 2021-11-02 13:49 | Emergency (ER) | payer BC, OTHER ==
[~2021-11-02] VITALS: Ht 175.3 cm; Wt 65.0 kg
[~2021-11-02 13:49] MED LIST changes: -CETI5CHW PO; -CLIN1GEL22 TOP; -MIRA3350 PO; -RA M1.74 PO; -SPIR100T3 PO
[2021-11-02] MEDS ORDERED: CETI5CHW PO (14:12)
[2021-11-02] MEDS ORDERED: SPIR100T3 PO (14:12)
[2021-11-02] MEDS ORDERED: CLIN1GEL22 TOP (14:12)
[2021-11-02] MEDS ORDERED: NS 1,000 ML IV ONE (16:55)
[2021-11-02] MEDS ORDERED: ONDANSETRON 4MG/2ML VIAL IV ONE (16:55)
[2021-11-02] MEDS ORDERED: KETOROLAC 30 MG/ML 1ML VIAL IV ONE (16:55)
[2021-11-02 18:02] LABS: BASO # 0.1 10^3/uL (0.0-0.2); BASO % 1.2 % (0.0-1.0); EOS # 0.1 10^3/uL (0.0-0.5); EOS % 1.2 % (0.0-3.0); HEMATOCRIT 43.8 % (36.0-47.0); LYMPH # 1.9 10^3/uL (1.5-5.0); LYMPH % 25.8 % (24.0-44.0); MEAN CORPUSCULAR HEMOGLOBIN 30.4 pg (27.0-33.0); MEAN CORPUSCULAR HGB CONC 34.2 g/dl (32.0-36.5); MEAN CORPUSCULAR VOLUME 88.7 fl (80.0-96.0); MONO # 0.3 10^3/uL (0.0-0.8); MONO % 3.5 % (2.0-8.0); NEUTROPHILS # 5.1 10^3/uL (1.5-8.5); PLATELET COUNT, AUTOMATED 221 10^3/uL (150-450); RED BLOOD COUNT 4.94 10^6/uL (4.00-5.40); WHITE BLOOD COUNT 7.5 10^3/uL (4.0-10.0)
[2021-11-02 18:31] LABS: ALBUMIN 4.5 GM/DL (3.2-5.2); ALT/SGPT 21 U/L (12-78); BILIRUBIN,DIRECT 0.2 MG/DL (0.0-0.2); BILIRUBIN,TOTAL 0.7 MG/DL (0.2-1.0); BLOOD UREA NITROGEN 10 MG/DL (7-18); CALCIUM LEVEL 9.8 MG/DL (8.5-10.1); CARBON DIOXIDE LEVEL 28 MEQ/L (21-32); CHLORIDE LEVEL 106 MEQ/L (98-107); CREATININE FOR GFR 0.82 MG/DL (0.55-1.30); GLOMERULAR FILTRATION RATE > 60.0 (>60); GLUCOSE, FASTING 93 MG/DL (70-100); LIPASE 102 U/L (73-393); POTASSIUM SERUM 3.9 MEQ/L (3.5-5.1); SODIUM LEVEL 140 MEQ/L (136-145); TOTAL PROTEIN 7.3 GM/DL (6.4-8.2)
[2021-11-02] MEDS ORDERED: ISOVUE-370 76% 100ML VIAL As Ordered ONE (18:41)
[2021-11-02 18:54] LABS: RSV AMPLIFICATION NEGATIVE (NEGATIVE)
[2021-11-02 19:32] VITALS: BP 145/67
--- NOTE | 2021-11-02 19:36 | REPVR ---
PROCEDURE INFORMATION: Exam: CT Abdomen And Pelvis With Contrast Exam date and time: 11/02/2021 6:48 PM Age: 31 years old Clinical indication: Abdominal pain; Additional info: Rlq pain TECHNIQUE: Imaging protocol: Computed tomography of the abdomen and pelvis with contrast. Radiation optimization: All CT scans at this facility use at least one of these dose optimization techniques: automated exposure control; mA and/or kV adjustment per patient size (includes targeted exams where dose is matched to clinical indication); or iterative reconstruction. Contrast material: ISOUVE 370; Contrast volume: 100 ml; Contrast route: INTRAVENOUS (IV); COMPARISON: CT ABD/PEL W/IV CONTRAST ONLY 09/14/2019 1:12 AM FINDINGS: Liver: Normal. No mass. Gallbladder and bile ducts: Normal. No calcified stones. No ductal dilation. Pancreas: Normal. No ductal dilation. Spleen: Normal. No splenomegaly. Adrenal glands: Normal. No mass. Kidneys and ureters: Normal. No hydronephrosis. Stomach and bowel: There is increased feces throughout the colon consistent with constipation. Appendix: No evidence of appendicitis. Intraperitoneal space: Unremarkable. No free air. No significant fluid collection. Vasculature: Unremarkable. No abdominal aortic aneurysm. Lymph nodes: Unremarkable. No enlarged lymph nodes. Urinary bladder: Unremarkable as visualized. Reproductive: Unremarkable as visualized. Bones/joints: Mild central spinal stenosis L3-L4 and L4-L5. Soft tissues: Small umbilical hernia. IMPRESSION: 1. There is increased feces throughout the colon consistent with constipation. 2. No acute changes. Electronically signed by: Lm Villatoro On 11/02/2021 19:35:48 PM
[2021-11-02] MEDS ORDERED: MIRA3350 PO (19:46)
[2021-11-02] MEDS ORDERED: RA M1.74 PO (19:46)
== END 2021-11-02 20:47 | disposition home or self-care (01) ==
LOC: M ED 13:49
DX: K59.00 Constipation, unspecified (principal)
CPT/HCPCS: 74177; 80048; 80076; 81001; 83605; 83690; 84702; 85025; 87631; 96361; 96374; 96375; 99284; J1885; J2405; Q9967

== ENCOUNTER 2021-11-20 17:48 | Emergency (ER) | payer BC, OTHER ==
[~2021-11-20 17:48] MED LIST changes: +CETI5CHW PO; +CLIN1GEL22 TOP; +MIRA3350 PO; +RA M1.74 PO; +SPIR100T3 PO
[2021-11-20 19:37] LABS: BASO # 0.1 10^3/uL (0.0-0.2); BASO % 0.5 % (0.0-1.0); EOS % 0.1 % (0.0-3.0); HEMATOCRIT 45.4 % (36.0-47.0); HEMOGLOBIN 15.6 g/dl (12.0-15.5); LYMPH # 0.9 10^3/uL (1.5-5.0); LYMPH % 9.7 % (24.0-44.0); MEAN CORPUSCULAR HEMOGLOBIN 29.8 pg (27.0-33.0); MEAN CORPUSCULAR HGB CONC 34.4 g/dl (32.0-36.5); MEAN CORPUSCULAR VOLUME 86.6 fl (80.0-96.0); MONO # 0.1 10^3/uL (0.0-0.8); MONO % 1.5 % (2.0-8.0); NEUTROPHILS # 8.5 10^3/uL (1.5-8.5); NEUTROPHILS % 87.9 % (36.0-66.0); PLATELET COUNT, AUTOMATED 212 10^3/uL (150-450); RED BLOOD COUNT 5.24 10^6/uL (4.00-5.40); WHITE BLOOD COUNT 9.6 10^3/uL (4.0-10.0)
[2021-11-20 20:47] LABS: BLOOD UREA NITROGEN 13 MG/DL (7-18); CALCIUM LEVEL 9.7 MG/DL (8.5-10.1); CARBON DIOXIDE LEVEL 27 MEQ/L (21-32); CHLORIDE LEVEL 108 MEQ/L (98-107); CREATININE FOR GFR 0.96 MG/DL (0.55-1.30); GLOMERULAR FILTRATION RATE > 60.0 (>60); GLUCOSE, FASTING 117 MG/DL (70-100); POTASSIUM SERUM 3.5 MEQ/L (3.5-5.1); SODIUM LEVEL 143 MEQ/L (136-145)
[2021-11-20 22:03] VITALS: BP 118/63
[2021-11-22 10:45] LABS: VITAMIN B12 LEVEL 488 PG/ML (247-911)
== END 2021-11-20 22:11 | disposition home or self-care (01) ==
LOC: M ED 17:48 → EDBD 17:48 → M ED 22:11
DX: R51.9 Headache, unspecified (principal); R11.2 Nausea with vomiting, unspecified; U07.1 COVID-19

== ENCOUNTER → 2021-12-09 | Outpatient (REF) | payer BC, OTHER | LOC: M LAB REF 18:16 | PROVIDERS: ATTEND Specialist | DX: N92.6 Irregular menstruation, unspecified (principal); N85.00 Endometrial hyperplasia, unspecified ==

== ENCOUNTER → 2022-03-03 | Outpatient (CLI) | payer BC, OTHER | LOC: M LABSMTC 09:46 | PROVIDERS: ATTEND Colon & Rectal Surgery | DX: Z11.52 Encounter for screening for COVID-19 (principal) ==

== ENCOUNTER → 2022-03-16 | Outpatient (CLI) | payer BC, OTHER ==
[~2022-03-16] MED LIST changes: +ALLE180T33 PO; +DEBL1TAB PO; +HYDR-643 PO; +MULT1TAB16 PO; +PROBCAP14 PO; +ZYRT10TA12 PO
== END ==
LOC: M LABSMTC 09:15
PROVIDERS: ATTEND Anesthesiology
DX: Z01.812 Encounter for preprocedural laboratory examination (principal); Z11.52 Encounter for screening for COVID-19

== ENCOUNTER 2022-03-21 13:45 | Day surgery (SDC) | payer BC, OTHER ==
[~2022-03-21] VITALS: Ht 175.3 cm; Wt 68.5 kg
[~2022-03-21 13:45] MED LIST changes: +LR 1,000 ML IV ONE
[2022-03-21 14:22] LABS: HEMATOCRIT 44.5 % (36.0-47.0); MEAN CORPUSCULAR HEMOGLOBIN 30.3 pg (27.0-33.0); MEAN CORPUSCULAR HGB CONC 33.7 g/dl (32.0-36.5); MEAN CORPUSCULAR VOLUME 89.9 fl (80.0-96.0); PLATELET COUNT, AUTOMATED 235 10^3/uL (150-450); RED BLOOD COUNT 4.95 10^6/uL (4.00-5.40); WHITE BLOOD COUNT 6.4 10^3/uL (4.0-10.0)
[2022-03-21] MEDS ORDERED: ACET-907 PO (14:31)
[2022-03-21] MEDS ORDERED: fentaNYL 100 MCG/2 ML INJECTION As Ordered ONE ×2 (15:09→16:56)
[2022-03-21] MEDS ORDERED: MIDAZOLAM INJ 2MG/2ML VIAL (J2250 PER 1MG) As Ordered ONE (15:09)
[2022-03-21] MEDS ORDERED: LIDOCAINE 2% 100MG/5ML SDV (FOR ANES.) As Ordered ONE (15:09)
[2022-03-21] MEDS ORDERED: propofoL 200 MG/20 ML VIAL As Ordered ONE (15:09)
[2022-03-21] MEDS ORDERED: diphenhydrAMINE 50MG/ML VIAL (J1200) IV ONE (15:10)
[2022-03-21] MEDS ORDERED: SCOPOLAMINE 1MG TRANSDERMAL PATCH TOP ONE (15:25)
[2022-03-21] MEDS ORDERED: LIDOCAINE 1% MDV 20ML VIAL As Ordered ONE (15:52)
[2022-03-21] MEDS ORDERED: SCOPOLAMINE 1MG TRANSDERMAL PATCH As Ordered ONE (16:04)
[2022-03-21] MEDS ORDERED: dexameTHASONE 4 MG/ML 1ML VIAL (J1100 PER 1MG) As Ordered ONE (16:11)
[2022-03-21] MEDS ORDERED: KETOROLAC 60MG 2ML VIAL As Ordered ONE (16:11)
[2022-03-21] MEDS ORDERED: METOCLOPRAMIDE INJ 10MG/2ML VIAL (J2765 PER 1) As Ordered ONE (16:11)
[2022-03-21] MEDS ORDERED: ONDANSETRON 4MG/2ML VIAL As Ordered ONE ×2 (16:11→16:56)
[2022-03-21] MEDS ORDERED: ACETAMINOPHEN 1000MG 100ML IV BTL (OFIRMEV) (J0131 PER 10MG) As Ordered ONE (16:15)
[2022-03-21] MEDS ORDERED: ePHEDrine SULFATE 25 MG/5 ML(5MG/ML) SYRINGE As Ordered ONE (16:21)
[2022-03-21] MEDS ORDERED: HYDROMORPHONE HCL 0.5 MG/ 0.5 ML SYRINGE (J1170 PER 1) IV PRN (16:55)
[2022-03-21] MEDS ORDERED: LR 1,000 ML IV SCH ×2 (16:55→17:05)
[2022-03-21] MEDS ORDERED: oxyCODONE 5MG TAB PO PRN (16:55)
[2022-03-21] MEDS ORDERED: fentaNYL 100 MCG/2 ML INJECTION IV PRN (16:55)
[2022-03-21] MEDS ORDERED: ONDANSETRON 4MG/2ML VIAL IV PRN (16:55)
[2022-03-21] MEDS ORDERED: oxyCODONE 5MG TAB As Ordered ONE (16:56)
[2022-03-21] MEDS ORDERED: PERCOCET 5MG/325MG TAB PO PRN (17:05)
[2022-03-21 17:40] VITALS: BP 127/69
== END 2022-03-21 18:00 | disposition home or self-care (01) ==
LOC: M SDC 13:45
PROVIDERS: ATTEND Specialist
DX: N92.1 Excessive and frequent menstruation with irregular cycle (principal); G50.0 Trigeminal neuralgia; K27.9 Peptic ulcer, site unspecified, unspecified as acute or chronic, without hemorrhage or perforation; G43.909 Migraine, unspecified, not intractable, without status migrainosus; K59.00 Constipation, unspecified; K64.8 Other hemorrhoids; Z86.16 Personal history of COVID-19; R35.0 Frequency of micturition; R06.83 Snoring; Z87.891 Personal history of nicotine dependence; Z79.899 Other long term (current) drug therapy
CPT/HCPCS: 36415; 58563; 81025; 85027; 88305; J0131; J1100; J1885; J2250; J2405; J2765; J3010

== ENCOUNTER → 2022-04-26 | Outpatient (REF) | payer BC ==
[~2022-04-26] MED LIST changes: +ACET-907 PO; -LR 1,000 ML IV ONE
== END ==
LOC: M WUC 12:22
PROVIDERS: ATTEND Student in an Organized Health Care Education/Training Program
DX: R30.0 Dysuria (principal)

== ENCOUNTER 2022-09-24 22:58 | Emergency (ER) | payer BC ==
[~2022-09-24] VITALS: Ht 175.3 cm; Wt 69.0 kg
[2022-09-25 04:14] LABS: BASO # 0.1 10^3/uL (0.0-0.2); BASO % 1.3 % (0.0-1.0); EOS # 0.2 10^3/uL (0.0-0.5); EOS % 2.5 % (0.0-3.0); HEMATOCRIT 45.2 % (36.0-47.0); HEMOGLOBIN 15.1 g/dl (12.0-15.5); LYMPH # 3.1 10^3/uL (1.5-5.0); MEAN CORPUSCULAR HEMOGLOBIN 29.4 pg (27.0-33.0); MEAN CORPUSCULAR HGB CONC 33.4 g/dl (32.0-36.5); MEAN CORPUSCULAR VOLUME 88.1 fl (80.0-96.0); MONO # 0.5 10^3/uL (0.0-0.8); MONO % 5.7 % (2.0-8.0); NEUTROPHILS # 4.7 10^3/uL (1.5-8.5); NEUTROPHILS % 54.3 % (36.0-66.0); PLATELET COUNT, AUTOMATED 206 10^3/uL (150-450); RED BLOOD COUNT 5.13 10^6/uL (4.00-5.40); WHITE BLOOD COUNT 8.7 10^3/uL (4.0-10.0)
[2022-09-25 04:41] LABS: ALBUMIN 4.6 GM/DL (3.2-5.2); ALT/SGPT 19 U/L (12-78); BILIRUBIN,TOTAL 0.9 MG/DL (0.2-1.0); BLOOD UREA NITROGEN 10 MG/DL (7-18); CALCIUM LEVEL 9.5 MG/DL (8.5-10.1); CARBON DIOXIDE LEVEL 26 MEQ/L (21-32); CHLORIDE LEVEL 107 MEQ/L (98-107); CREATININE FOR GFR 0.87 MG/DL (0.55-1.30); FREE T4 1.06 NG/DL (0.76-1.46); GLOMERULAR FILTRATION RATE > 60.0 (>60); GLUCOSE, FASTING 102 MG/DL (70-100); LIPASE 147 U/L (73-393); MAGNESIUM LEVEL 2.2 MG/DL (1.8-2.4); POTASSIUM SERUM 3.7 MEQ/L (3.5-5.1); SODIUM LEVEL 140 MEQ/L (136-145); TOTAL PROTEIN 7.5 GM/DL (6.4-8.2)
[2022-09-25] MEDS ORDERED: NS 1,000 ML IV ONE ×2 (05:35→06:40)
[2022-09-25] MEDS ORDERED: ISOVUE-370 76% 100ML VIAL As Ordered ONE (06:03)
[2022-09-25 06:10] LABS: HCG, SERUM QUALITATIVE NEGATIVE (NEGATIVE)
[2022-09-25 06:54] LABS: CK-MB VALUE MASS < 1.0 NG/ML (<3.6); CPK CREATINE PHOSPHOKINASE 86 U/L (26-192); MB/CK RELATIVE INDEX 1.16 (< OR =4)
[2022-09-25 08:40] VITALS: BP 114/67
== END 2022-09-25 08:42 | disposition home or self-care (01) ==
LOC: M ED 22:58
DX: B34.8 Other viral infections of unspecified site (principal); R00.2 Palpitations; R94.6 Abnormal results of thyroid function studies; R00.0 Tachycardia, unspecified; I45.10 Unspecified right bundle-branch block; Z87.891 Personal history of nicotine dependence; Z79.899 Other long term (current) drug therapy

== ENCOUNTER → 2022-09-28 | Outpatient (REF) | payer OTHER, BC | LOC: M LAB REF 15:47 | PROVIDERS: ATTEND Registered Nurse | DX: R35.0 Frequency of micturition (principal) ==

== ENCOUNTER → 2022-10-14 | Outpatient (REF) | payer BC, OTHER | LOC: M LABWUC 16:30 | PROVIDERS: ATTEND Internal Medicine Cardiovascular Disease | DX: R06.02 Shortness of breath (principal) ==

== ENCOUNTER → 2022-10-24 | Outpatient (CLI) | payer BC, OTHER | LOC: M CARPUL 12:40 | PROVIDERS: ATTEND Internal Medicine Cardiovascular Disease | DX: R06.02 Shortness of breath (principal) ==

== ENCOUNTER → 2022-11-03 | Outpatient (CLI) | payer BC, OTHER ==
[2022-11-03 17:15] LABS: BASO # 0.1 10^3/uL (0.0-0.2); BASO % 1.8 % (0.0-1.0); EOS # 0.3 10^3/uL (0.0-0.5); EOS % 5.1 % (0.0-3.0); HEMOGLOBIN 14.6 g/dl (12.0-15.5); LYMPH # 2.2 10^3/uL (1.5-5.0); LYMPH % 36.9 % (24.0-44.0); MEAN CORPUSCULAR HEMOGLOBIN 29.7 pg (27.0-33.0); MEAN CORPUSCULAR HGB CONC 32.4 g/dl (32.0-36.5); MEAN CORPUSCULAR VOLUME 91.6 fl (80.0-96.0); MONO # 0.3 10^3/uL (0.0-0.8); MONO % 5.3 % (2.0-8.0); NEUTROPHILS # 3.1 10^3/uL (1.5-8.5); NEUTROPHILS % 50.7 % (36.0-66.0); PLATELET COUNT, AUTOMATED 202 10^3/uL (150-450); RED BLOOD COUNT 4.91 10^6/uL (4.00-5.40); WHITE BLOOD COUNT 6.1 10^3/uL (4.0-10.0)
[2022-11-03 17:33] LABS: ALBUMIN 4.2 G/DL (3.2-5.2); ALKALINE PHOSPHATASE 55 U/L (46-116); ALT/SGPT 17 U/L (7.0-40); AST/SGOT 20 U/L (<34); BILIRUBIN,TOTAL 0.5 MG/DL (0.3-1.2); BLOOD UREA NITROGEN 11 MG/DL (9-23); CALCIUM LEVEL 9.5 MG/DL (8.5-10.1); CARBON DIOXIDE LEVEL 29 MMOL/L (20-31); CHLORIDE LEVEL 104 MMOL/L (98-107); CREATININE FOR GFR 0.78 MG/DL (0.55-1.30); GLOMERULAR FILTRATION RATE > 60.0 (>60); GLUCOSE, FASTING 78 MG/DL (60-100); POTASSIUM SERUM 4.3 MMOL/L (3.5-5.1); SODIUM LEVEL 140 MMOL/L (136-145); TOTAL PROTEIN 6.5 G/DL (5.7-8.2)
[2022-11-03 17:40] LABS: FREE T4 1.02 NG/DL (0.89-1.76)
[2022-11-03 17:41] LABS: THYROID STIMULATING HORMONE 1.036 uIU/ML (0.55-4.78)
== END ==
LOC: M WUC 14:41
PROVIDERS: ATTEND Registered Nurse
DX: R94.6 Abnormal results of thyroid function studies (principal); R00.2 Palpitations

== ENCOUNTER → 2022-11-24 | Outpatient (CLI) | payer BC, OTHER ==
[2022-11-24 17:06] LABS: PERCENT SATURATION 47.5 % (13.2-45.0)
[2022-11-24 17:08] LABS: FERRITIN 51.9 NG/ML (7.3-270.7); TOTAL 25(OH) VITAMIN D 23.9 NG/ML (20.0-100.0)
== END ==
LOC: M WUC 14:14
DX: R53.83 Other fatigue (principal)

== ENCOUNTER → 2022-11-28 | Outpatient (CLI) | payer BC, OTHER ==
[2022-11-28 16:50] LABS: BASO # 0.1 10^3/uL (0.0-0.2); BASO % 1.2 % (0.0-1.0); EOS # 0.4 10^3/uL (0.0-0.5); EOS % 5.4 % (0.0-3.0); HEMOGLOBIN 14.7 g/dl (12.0-15.5); LYMPH # 2.1 10^3/uL (1.5-5.0); LYMPH % 32.3 % (24.0-44.0); MEAN CORPUSCULAR HEMOGLOBIN 29.5 pg (27.0-33.0); MEAN CORPUSCULAR VOLUME 92.2 fl (80.0-96.0); MONO # 0.4 10^3/uL (0.0-0.8); MONO % 6.2 % (2.0-8.0); NEUTROPHILS # 3.6 10^3/uL (1.5-8.5); NEUTROPHILS % 54.7 % (36.0-66.0); PLATELET COUNT, AUTOMATED 235 10^3/uL (150-450); RED BLOOD COUNT 4.99 10^6/uL (4.00-5.40); WHITE BLOOD COUNT 6.5 10^3/uL (4.0-10.0)
[2022-11-28 17:27] LABS: FERRITIN 62.1 NG/ML (7.3-270.7)
[2022-11-28 17:28] LABS: TOTAL IRON BINDING CAPACITY 308 UG/DL (250-425)
[2022-11-28 17:29] LABS: ALBUMIN 4.1 G/DL (3.2-5.2); ALKALINE PHOSPHATASE 58 U/L (46-116); ALT/SGPT 21 U/L (7.0-40); AST/SGOT 19 U/L (<34); BILIRUBIN,TOTAL 0.7 MG/DL (0.3-1.2); BLOOD UREA NITROGEN 14 MG/DL (9-23); CALCIUM LEVEL 9.3 MG/DL (8.5-10.1); CARBON DIOXIDE LEVEL 30 MMOL/L (20-31); CHLORIDE LEVEL 107 MMOL/L (98-107); CREATININE FOR GFR 0.85 MG/DL (0.55-1.30); GLOMERULAR FILTRATION RATE > 60.0 (>60); GLUCOSE, FASTING 70 MG/DL (60-100); IRON (FE) 159 UG/DL (50-170); PERCENT SATURATION 51.6 % (13.2-45.0); SODIUM LEVEL 142 MMOL/L (136-145); TOTAL PROTEIN 6.5 G/DL (5.7-8.2)
== END ==
LOC: M WUC 13:11
PROVIDERS: ATTEND Registered Nurse
DX: R53.83 Other fatigue (principal)

== ENCOUNTER → 2022-12-19 | Outpatient (REF) | payer BC, OTHER | LOC: M WUC 19:54 | PROVIDERS: ATTEND Student in an Organized Health Care Education/Training Program | DX: R30.0 Dysuria (principal) ==

== ENCOUNTER → 2022-12-30 | Outpatient (REF) | payer OTHER, BC | LOC: M LAB REF 16:14 | PROVIDERS: ATTEND Physician Assistant | DX: R30.0 Dysuria (principal) ==

== ENCOUNTER → 2023-01-17 | Outpatient (CLI) | payer BC, OTHER ==
[~2023-01-17] MED LIST changes: +BIOT5TAB3 PO; +CEPHALEXIN; +tumeric PO
[2023-01-17 13:22] LABS: BASO # 0.1 10^3/uL (0.0-0.2); BASO % 1.6 % (0.0-1.0); EOS # 0.5 10^3/uL (0.0-0.5); HEMATOCRIT 42.8 % (36.0-47.0); HEMOGLOBIN 14.3 g/dl (12.0-15.5); LYMPH # 1.7 10^3/uL (1.5-5.0); MEAN CORPUSCULAR HEMOGLOBIN 30.2 pg (27.0-33.0); MEAN CORPUSCULAR HGB CONC 33.4 g/dl (32.0-36.5); MEAN CORPUSCULAR VOLUME 90.5 fl (80.0-96.0); MONO # 0.3 10^3/uL (0.0-0.8); MONO % 5.4 % (2.0-8.0); NEUTROPHILS # 3.2 10^3/uL (1.5-8.5); NEUTROPHILS % 54.7 % (36.0-66.0); PLATELET COUNT, AUTOMATED 200 10^3/uL (150-450); RED BLOOD COUNT 4.73 10^6/uL (4.00-5.40); WHITE BLOOD COUNT 5.8 10^3/uL (4.0-10.0)
[2023-01-17 13:36] LABS: ERYTHROCYTE SEDIMENTATION RATE 8 mm/hr (0-20)
[2023-01-17 13:56] LABS: FERRITIN 49.4 NG/ML (7.3-270.7)
[2023-01-17 13:58] LABS: C REACTIVE PROTEIN QUANTITATIV < 0.40 MG/DL (<1.0)
[2023-01-17 13:59] LABS: ALBUMIN 4.1 G/DL (3.2-5.2); ALKALINE PHOSPHATASE 53 U/L (46-116); ALT/SGPT 16 U/L (7.0-40); AST/SGOT 15 U/L (<34); BILIRUBIN,TOTAL 0.7 MG/DL (0.3-1.2); BLOOD UREA NITROGEN 12 MG/DL (9-23); CALCIUM LEVEL 8.8 MG/DL (8.5-10.1); CARBON DIOXIDE LEVEL 29 MMOL/L (20-31); CHLORIDE LEVEL 105 MMOL/L (98-107); CREATININE FOR GFR 0.79 MG/DL (0.55-1.30); GLOMERULAR FILTRATION RATE > 60.0 (>60); GLUCOSE, FASTING 84 MG/DL (60-100); IRON (FE) 114 UG/DL (50-170); PERCENT SATURATION 38.9 % (13.2-45.0); POTASSIUM SERUM 3.8 MMOL/L (3.5-5.1); SODIUM LEVEL 139 MMOL/L (136-145); TOTAL IRON BINDING CAPACITY 293 UG/DL (250-425); TOTAL PROTEIN 6.5 G/DL (5.7-8.2)
== END ==
LOC: M WUC 09:15
PROVIDERS: ATTEND Internal Medicine Medical Oncology
DX: R79.0 Abnormal level of blood mineral (principal)

== ENCOUNTER → 2023-10-09 | Outpatient (CLI) | payer BC, OTHER | LOC: M PLAIMG 16:31 | PROVIDERS: ATTEND Registered Nurse | DX: B34.9 Viral infection, unspecified (principal) ==

== ENCOUNTER 2023-11-17 03:13 | Emergency (ER) | payer BC, OTHER ==
[~2023-11-17] VITALS: Ht 175.3 cm; Wt 66.7 kg
[2023-11-17 04:15] LABS: HEMATOCRIT 42.4 % (36.0-47.0); HEMOGLOBIN 14.7 g/dl (12.0-15.5); RED BLOOD COUNT 4.84 10^6/uL (4.00-5.40)
[2023-11-17 04:16] LABS: BASO # 0.1 10^3/uL (0.0-0.2); BASO % 0.5 % (0.0-1.0); EOS # 0.2 10^3/uL (0.0-0.5); EOS % 1.7 % (0.0-3.0); LYMPH # 2.6 10^3/uL (1.5-5.0); LYMPH % 26.3 % (24.0-44.0); MEAN CORPUSCULAR HEMOGLOBIN 30.4 pg (27.0-33.0); MEAN CORPUSCULAR HGB CONC 34.7 g/dl (32.0-36.5); MEAN CORPUSCULAR VOLUME 87.6 fl (80.0-96.0); MONO # 0.5 10^3/uL (0.0-0.8); NEUTROPHILS # 6.7 10^3/uL (1.5-8.5); NEUTROPHILS % 66.2 % (36.0-66.0); PLATELET COUNT, AUTOMATED 224 10^3/uL (150-450)
[2023-11-17 04:24] LABS: LIPASE 42 U/L (12-53)
[2023-11-17 04:26] LABS: ALBUMIN 3.9 G/DL (3.2-5.2); ALKALINE PHOSPHATASE 62 U/L (46-116); ALT/SGPT 17 U/L (7.0-40); AST/SGOT 15 U/L (<34); BILIRUBIN,DIRECT 0.1 MG/DL (<0.4); BILIRUBIN,TOTAL 0.4 MG/DL (0.3-1.2); BLOOD UREA NITROGEN 13 MG/DL (9-23); CALCIUM LEVEL 8.8 MG/DL (8.5-10.1); CARBON DIOXIDE LEVEL 26 MMOL/L (20-31); CHLORIDE LEVEL 110 MMOL/L (98-107); CREATININE FOR GFR 0.88 MG/DL (0.55-1.30); GLOMERULAR FILTRATION RATE > 60.0 (>60); GLUCOSE, FASTING 97 MG/DL (60-100); POTASSIUM SERUM 3.8 MMOL/L (3.5-5.1); SODIUM LEVEL 144 MMOL/L (136-145); TOTAL PROTEIN 6.2 G/DL (5.7-8.2)
[2023-11-17] MEDS ORDERED: SUCRALFATE SUSP 1GM/10ML UD PO ONE (08:00)
[2023-11-17] MEDS ORDERED: diphenhydrAMINE 50MG/ML VIAL IV STA (08:38)
[2023-11-17] MEDS: GASTROGRAFIN SOLUTION 30ML PO SCH ×2 (08:52→09:25)
[2023-11-17] MEDS ORDERED: ISOVUE-370 76% 100ML VIAL As Ordered ONE (09:43)
[2023-11-17] MEDS ORDERED: OMEP40CA4 PO (10:54)
[2023-11-17 11:03] VITALS: BP 126/71; TEMP 98.3; O2SAT 98
== END 2023-11-17 11:19 | disposition home or self-care (01) ==
LOC: M ED 03:13
DX: K21.9 Gastro-esophageal reflux disease without esophagitis (principal); Z79.899 Other long term (current) drug therapy
CPT/HCPCS: 74177; 80053; 81001; 82248; 83690; 84702; 85025; 93005; 96374; 99284; J1200; Q9963; Q9967

== ENCOUNTER → 2023-12-25 | Outpatient (REF) | payer BC, OTHER ==
[~2023-12-25] MED LIST changes: +OMEP40CA4 PO
== END ==
LOC: M LAB REF 16:05
PROVIDERS: ATTEND Registered Nurse
DX: K21.9 Gastro-esophageal reflux disease without esophagitis (principal)

== ENCOUNTER → 2024-03-11 | Outpatient (REF) | payer BC, OTHER | LOC: M LAB REF 15:16 | PROVIDERS: ATTEND Nurse Practitioner Family | DX: R19.7 Diarrhea, unspecified (principal) ==

== ENCOUNTER 2024-04-18 06:54 | Day surgery (SDC) | payer BC ==
[~2024-04-18] VITALS: Ht 175.3 cm; Wt 63.9 kg
[~2024-04-18 06:54] MED LIST changes: +OMEP40CA5 PO; +RIZA10TA2; +TOPI25TA10 PO; +TURM500T PO
[2024-04-18] MEDS: NS 1,000 ML IV ONE (07:37)
[2024-04-18] MEDS ORDERED: ALLE24TA7 PO (07:40)
[2024-04-18] MEDS ORDERED: fentaNYL 100 MCG/2 ML INJECTION As Ordered ONE (08:29)
[2024-04-18] MEDS ORDERED: propofoL 200 MG/20 ML VIAL As Ordered ONE (08:49)
[2024-04-18 08:50] VITALS: BP 108/63; O2SAT 99
[2024-04-18] MEDS ORDERED: LIDOCAINE 2% 100MG/5ML SDV (FOR ANES.) As Ordered ONE (08:50)
== END 2024-04-18 08:57 | disposition home or self-care (01) ==
LOC: M OPP 06:54
PROVIDERS: ATTEND Internal Medicine Gastroenterology
DX: R12 Heartburn (principal); R11.0 Nausea; R10.12 Left upper quadrant pain; I05.9 Rheumatic mitral valve disease, unspecified; Z79.1 Long term (current) use of non-steroidal anti-inflammatories (NSAID); Z79.899 Other long term (current) drug therapy; Z88.2 Allergy status to sulfonamides
CPT/HCPCS: 43239; 88305; J3010

== ENCOUNTER → 2024-11-05 | Outpatient (REF) | payer BC ==
[~2024-11-05] MED LIST changes: +ALLE24TA7 PO
== END ==
LOC: M LAB REF 09:12
PROVIDERS: ATTEND Student in an Organized Health Care Education/Training Program
DX: R30.0 Dysuria (principal)

== ENCOUNTER → 2024-11-28 | Outpatient (CLI) | payer BC ==
[2024-11-28 17:41] LABS: BASO # 0.1 10^3/uL (0.0-0.2); BASO % 1.2 % (0.0-1.0); EOS # 0.2 10^3/uL (0.0-0.5); EOS % 3.5 % (0.0-3.0); HEMATOCRIT 42.4 % (36.0-47.0); HEMOGLOBIN 13.9 g/dl (12.0-15.5); LYMPH # 2.6 10^3/uL (1.5-5.0); LYMPH % 37.6 % (24.0-44.0); MEAN CORPUSCULAR HGB CONC 32.8 g/dl (32.0-36.5); MEAN CORPUSCULAR VOLUME 91.6 fl (80.0-96.0); MONO # 0.5 10^3/uL (0.0-0.8); MONO % 6.7 % (2.0-8.0); NEUTROPHILS # 3.5 10^3/uL (1.5-8.5); NEUTROPHILS % 50.7 % (36.0-66.0); PLATELET COUNT, AUTOMATED 283 10^3/uL (150-450); RED BLOOD COUNT 4.63 10^6/uL (4.00-5.40); WHITE BLOOD COUNT 6.9 10^3/uL (4.0-10.0)
[2024-11-28 17:56] LABS: LIPASE 46 U/L (12-53)
[2024-11-28 17:58] LABS: AMYLASE 103 U/L (30-118)
[2024-11-28 17:59] LABS: ALBUMIN 3.7 G/DL (3.2-5.2); ALKALINE PHOSPHATASE 57 U/L (35-104); ALT/SGPT 16 U/L (7.0-40); AST/SGOT 12 U/L (<34); BILIRUBIN,TOTAL 0.4 MG/DL (0.3-1.2); BLOOD UREA NITROGEN 14 MG/DL (9-23); CALCIUM LEVEL 9.4 MG/DL (8.5-10.1); CARBON DIOXIDE LEVEL 31 MMOL/L (20-31); CHLORIDE LEVEL 104 MMOL/L (98-107); CREATININE FOR GFR 0.76 MG/DL (0.55-1.30); GLOMERULAR FILTRATION RATE > 60.0 (>60); GLUCOSE, FASTING 109 MG/DL (60-100); POTASSIUM SERUM 4.4 MMOL/L (3.5-5.1); SODIUM LEVEL 143 MMOL/L (136-145); TOTAL PROTEIN 6.6 G/DL (5.7-8.2)
== END ==
LOC: M WUC 14:05
PROVIDERS: ATTEND Registered Nurse
DX: R10.11 Right upper quadrant pain (principal)